=== PATIENT | male | born 1980 | race African-American/Black ===

== ENCOUNTER 2016-04-28 09:41 | Emergency (ER) | payer SELFPAY ==
[~2016-04-28] VITALS: Ht 182.9 cm; Wt 88.0 kg
[~2016-04-28 09:41] MED LIST: CRUTCHES AXILLARY; HYDR7.5S PO
[2016-04-28 09:43] VITALS: BP 116/71; PULSE 66; RESP 20; TEMP 97.8; O2SAT 97
[2016-04-28 09:49] VITALS: BP 115/60; PULSE 70; RESP 20; TEMP 98.7
--- NOTE | 2016-04-28 10:51 | PD ---
HPI Chief Complaint: Oral / Dental Pain or Problem Time Seen by Provider: 10:41 Travel History International Travel<30 days: No Contact w/Intl Traveler<30days: No Traveled to known affect area: No History of Present Illness HPI 36-year-old male came to the emergency room with history of left-sided jaw pain , swelling and nausea. Patient says that he had a pimple 2 weeks ago on that side of his jaw. It popped and pus came out. He has been putting Band-Aid and cleaning it. However now he has pain and has difficulty eating and chewing his food. Last night he drank alcohol and this morning he has been vomiting. Vital signs are stable in the emergency room. Patient had a jaw fracture one year ago on the left side. He was in this hospital at that time. [facility] Past Medical History Narrative Medical List of his past medical history is reviewed from the nursing note. Arthritis: No Asthma: No Autoimmune Disease: No Heart Rhythm Problems: No Cancer: No Cardiovascular Problems: No High Cholesterol: No Chemotherapy: No Chest Pain: No Congestive Heart Failure: No COPD: No Cerebrovascular Accident: No Diabetes: No Diminished Hearing: No Endocrine: No GERD: No Genitourinary: No Hiatal Hernia: No Immune Disorder: No Kidney Stones: No Musculoskeletal: No Neurologic: No Psychiatric: No Reproductive: No Respiratory: No Migraines: No Radiation Therapy: No Renal Failure: No Seizures: No Sickle Cell Disease: No Sleep Apnea: No Thyroid Disease: No Ulcer: No Past Surgical History Abdominal Surgery: No AICD: No Arteriovenous Shunt: No Cardiac Surgery: No Ear Surgery: No Endocrine Surgery: No Eye Surgery: No Genitourinary Surgery: No Gynecologic Surgery: No Insulin Pump: No Joint Replacement: No Oral Surgery: No Pacemaker: No Thoracic Surgery: No Other Surgery: Yes (plate fused on left jaw) Social History Alcohol Use: Yes (PINT OF LIQUOR ON THE WEEKENDS) Tobacco Use: Yes (1/2 PACK DAILY) Substance Use: Yes (MARIJUANA) Allergies-Medications (Allergen,Severity, Reaction): Coded Allergies: No Known Allergies (Verified , 03/04/15) Comments No known drug allergies. Reported Meds & Prescriptions Reported Meds & Active Scripts Active Ibuprofen 600 Mg Tab 600 Mg PO Q8HR PRN Protonix (Pantoprazole Sodium) 20 Mg Tab 20 Mg PO DAILY Keflex (Cephalexin) 500 Mg Cap 500 Mg PO Q8H Hydrocodone Bita1 M2 15 Ml Soln 15 Ml PO Q6H PRN Crutches Axillary 1 Ea Narrative Medication List of his home medications reviewed from the nursing note. Review of Systems Except as stated in HPI: all other systems reviewed are Neg Physical Exam Narrative GENERAL: Awake, alert, moderate distress, alcohol breath SKIN: Warm and dry. Left mandibular angle area skin has dried scabs and slight swelling which is tender to touch HEAD: Atraumatic. Normocephalic. EYES: Pupils equal and round. No scleral icterus. No injection or drainage. ENT: No nasal bleeding or discharge. Mucous membranes pink and moist. Left gingivobuccal groove looks slightly swollen and tender to touch. There is an area corresponding to #19 tooth where in the gum area there is a little tissue growth. It is tender to touch. Not friable. Seem like there might be pus coming out and swab was collected. Teeth look otherwise in moderate condition. NECK: Trachea midline. No JVD. CARDIOVASCULAR: Regular rate and rhythm. No murmur appreciated. RESPIRATORY: No accessory muscle use. Clear to auscultation. Breath sounds equal bilaterally. GASTROINTESTINAL: Abdomen soft, non-tender, nondistended. Hepatic and splenic margins not palpable. MUSCULOSKELETAL: No obvious deformities. No clubbing. No cyanosis. No edema. NEUROLOGICAL: Awake and alert. No obvious cranial nerve deficits. Motor grossly within normal limits. Normal speech. PSYCHIATRIC: Appropriate mood and affect; insight and judgment normal. Data Data Last Documented VS Vital Signs Date Time Temp Pulse Resp B/P Pulse Ox O2 Delivery O2 Flow Rate FiO2 04/28/16 09:51 67 04/28/16 09:49 98.7 20 115/60 04/28/16 09:43 97 Room Air Orders Cephalexin (Keflex) (04/28/16 11:00) Ondansetron Odt (Zofran Odt) (04/28/16 11:00) Acetamin-Hydrocod 325-5 Mg ([place] 5-325 (04/28/16 11:00) Wound Culture And Gram Stain (04/28/16 11:01) MDM Medical Decision Making Medical Screen Exam Complete: Yes Emergency Medical Condition: Yes Medical Record Reviewed: Yes Differential Diagnosis Gingivitis, folliculitis, alcoholic gastritis Narrative Course 11:06 AM given stable vital signs I'm comfortable not ordering any blood test for this patient. The wound culture will be sent. I have ordered by mouth Keflex, by mouth hydrocodone and Zofran for him. He'll be discharged home with prescriptions. I have encouraged him to take the antibiotics and see a dentist. Procedures EKG Prior to Arrival: No Diagnosis Primary Impression: Gingivitis Additional Impressions: Folliculitis Alcoholic gastritis Qualified Code: K29.20 - Acute alcoholic gastritis without hemorrhage Referrals: Primary Care Physician 3 days Additional Instructions: Please take the medications as per the prescription direction. Keep good dental hygiene. Use Listerine mouthwash as often as possible during the day especially after every meal. Follow up with a dentist. Return to the ER if the condition worsens or any other new concerns. Med/Other Pt SpecificInfo: Prescription(s) given Scripts Ibuprofen 600 Mg [id number] Mg PO Q8HR PRN (PAIN) #30 TAB Ref 0 Prov:Julia Mercado MD 04/28/16 Pantoprazole (Protonix)20 Mg Tab20 Mg PO DAILY #30 TAB Ref 0 Prov:Julia Mercado MD 04/28/16 Cephalexin (Keflex)500 Mg [id number] Mg PO Q8H #30 CAP Ref 0 Prov:Julia Mercado MD 04/28/16 Disposition: 01 DISCHARGE HOME Condition: Stable Julia Mercado MD Apr 28, 2016 10:51
[2016-04-28] MEDS ORDERED: ACETAMINOPHEN/HYDROcodone 325 MG/5 MG TAB PO ONE (11:00)
[2016-04-28] MEDS ORDERED: ONDANSETRON ODT 4 MG TAB PO ONE (11:00)
[2016-04-28] MEDS ORDERED: CEPHALEXIN MONOHYDRATE 500 MG CAP PO ONE (11:00)
[2016-04-28] MEDS ORDERED: CEPH-460 PO (11:09)
[2016-04-28] MEDS ORDERED: PANT20 PO (11:09)
[2016-04-28] MEDS ORDERED: IBUP-232 PO (11:09)
== END 2016-04-28 12:18 | disposition home or self-care (01) ==
LOC: NEPA 09:41
DX: K05.10 Chronic gingivitis, plaque induced (principal); L73.9 Follicular disorder, unspecified; K29.20 Alcoholic gastritis without bleeding; F17.210 Nicotine dependence, cigarettes, uncomplicated; F12.10 Cannabis abuse, uncomplicated; F10.10 Alcohol abuse, uncomplicated
CPT/HCPCS: 87070; 99283

== ENCOUNTER 2016-05-06 20:57 | Inpatient (IN) | payer SELFPAY ==
[~2016-05-06] VITALS: Ht 182.9 cm; Wt 87.0 kg
[~2016-05-06 20:57] MED LIST changes: +CEPH-460 PO; +IBUP-232 PO; +PANT20 PO
[2016-05-06 20:59] VITALS: BP 136/81; PULSE 89; RESP 18; TEMP 98.2; O2SAT 98
[2016-05-07] VITALS (7 sets, daily range): BP systolic 109–127; BP diastolic 56–66; PULSE 54–68; RESP 16–20; TEMP 96.8–98.2; O2SAT 94–100
[2016-05-07 04:12] LABS: BASOPHIL % 0.4 % (0.0-2.0); EOSINOPHIL # 0.2 TH/MM3 (0-0.4); HEMATOCRIT 41.5 % (39.0-51.0); HEMO FLAGS DIFF FINAL; LYMPH % 21.6 % (9.0-44.0); MEAN CELL VOLUME 81.8 FL (80.0-100.0); MEAN CORPUSCULAR HEMOGLOBIN 26.9 PG (27.0-34.0); MEAN CORPUSCULAR HGB CONC 32.9 % (32.0-36.0); MONO % 10.2 % (0.0-8.0); NEUT % 65.8 % (16.0-70.0); PLATELET COUNT 243 TH/MM3 (150-450); RED BLOOD COUNT 5.07 MIL/MM3 (4.50-5.90); WHITE BLOOD COUNT 9.1 TH/MM3 (4.0-11.0)
[2016-05-07 04:33] LABS: ALT (GPT) 20 U/L (12-78); ANION GAP 9 MEQ/L (5-15); AST (GOT) 12 U/L (15-37); BICARBONATE 26.2 MEQ/L (21.0-32.0); BLOOD UREA NITROGEN 19 MG/DL (7-18); CHLORIDE 104 MEQ/L (98-107); GLOMERULAR FILTRATION RATE 94 ML/MIN (>89); POTASSIUM 3.7 MEQ/L (3.5-5.1); SODIUM (NA) 139 MEQ/L (136-145)
[2016-05-07 04:36] LABS: ALKALINE PHOSPHATASE 74 U/L (45-117); TOTAL BILIRUBIN ADULT 0.6 MG/DL (0.2-1.0)
[2016-05-07] MEDS ORDERED: KETOROLAC TROMETHAMINE 30 MG/ML (IVP) VIAL IV PUSH ONE (05:15)
--- NOTE | 2016-05-07 05:15 | PD ---
HPI Chief Complaint: Oral / Dental Pain or Problem Time Seen by Provider: 04:18 Travel History International Travel<30 days: No Contact w/Intl Traveler<30days: No Traveled to known affect area: No History of Present Illness HPI 36yo M with PMH of mandibular surgery [address] Fulton presents to the ED with c/o left jaw swelling and pain for 1 month. Pt has had recurrent abscess since the surgery and had been drained by Dr. Fulton before. However, pt could not afford a follow up this time so came to the ED. Denies any fever, drooling, chest pain, sob, n/v, abdominal pain, weakness or numbness. PFSH Past Medical History Arthritis: No Asthma: No Autoimmune Disease: No Heart Rhythm Problems: No Cancer: No Cardiovascular Problems: No High Cholesterol: No Chemotherapy: No Chest Pain: No Congestive Heart Failure: No COPD: No Cerebrovascular Accident: No Diabetes: No Diminished Hearing: No Endocrine: No GERD: No Genitourinary: No Hiatal Hernia: No Immune Disorder: No Kidney Stones: No Musculoskeletal: No Neurologic: No Psychiatric: No Reproductive: No Respiratory: No Migraines: No Radiation Therapy: No Renal Failure: No Seizures: No Sickle Cell Disease: No Sleep Apnea: No Thyroid Disease: No Ulcer: No ?: Not Past Surgical History Abdominal Surgery: No AICD: No Arteriovenous Shunt: No Cardiac Surgery: No Ear Surgery: No Endocrine Surgery: No Eye Surgery: No Genitourinary Surgery: No Gynecologic Surgery: No Insulin Pump: No Joint Replacement: No Oral Surgery: No Pacemaker: No Thoracic Surgery: No Other Surgery: Yes (plate fused on left jaw) Social History Alcohol Use: Yes (PINT OF LIQUOR ON THE WEEKENDS) Tobacco Use: Yes (1/2 PACK DAILY) Substance Use: Yes (MARIJUANA) Allergies-Medications (Allergen,Severity, Reaction): Coded Allergies: No Known Allergies (Verified , 05/06/16) Reported Meds & Prescriptions Reported Meds & Active Scripts Active Ibuprofen 600 Mg Tab 600 Mg PO Q8HR PRN Protonix (Pantoprazole Sodium) 20 Mg Tab 20 Mg PO DAILY Keflex (Cephalexin) 500 Mg Cap 500 Mg PO Q8H Hydrocodone Bita1 M2 15 Ml Soln 15 Ml PO Q6H PRN Crutches Axillary 1 Ea Review of Systems Except as stated in HPI: all other systems reviewed are Neg Physical Exam Narrative GENERAL: 36yo M in mild distress. SKIN: Warm and dry. HEAD: Atraumatic. Normocephalic. EYES: Pupils equal and round. No scleral icterus. No injection or drainage. ENT: Left mandible: +5cm by 3cm abscess with +Fluctuance and mild drainage of purulent discharge. +Trismus. NECK: Trachea midline. No JVD. CARDIOVASCULAR: Regular rate and rhythm. No murmur appreciated. RESPIRATORY: No accessory muscle use. Clear to auscultation. Breath sounds equal bilaterally. GASTROINTESTINAL: Abdomen soft, non-tender, nondistended. No rebound tenderness or guarding. MUSCULOSKELETAL: No obvious deformities. No clubbing. No cyanosis. No edema. NEUROLOGICAL: Awake and alert. No obvious cranial nerve deficits. Motor grossly within normal limits. Normal speech. PSYCHIATRIC: Appropriate mood and affect; insight and judgment normal. Data Data Last Documented VS Vital Signs Date Time Temp Pulse Resp B/P Pulse Ox O2 Delivery O2 Flow Rate FiO2 05/06/16 20:59 98.2 89 18 136/81 98 Room Air Orders Complete Blood Count With Diff (05/07/16 03:25) Comprehensive Metabolic Panel (05/07/16 03:25) Lactic Acid Sepsis Protocol (05/07/16 03:25) Blood Culture (05/07/16 03:25) Blood Glucose (05/07/16 03:25) Ct Soft Tiss Neck W Iv Cont (05/07/16 ) Ketorolac Inj (Toradol Inj) (05/07/16 05:15) Iohexol 350 Inj (Omnipaque 350 Inj) (05/07/16 05:17) Admit Order (Ed Use Only) (05/07/16 06:49) Place In Observation (05/07/16 ) Vital Signs (Adult) Q4H (05/07/16 06:49) Activity Oob Ad Kimberly (05/07/16 06:49) ^ Slip Laster / Telemetry .CONTINUOUS (05/07/16 06:49) Diet Npo (05/07/16 Breakfast) Sodium Chlor 0.9% 1000 Ml Inj (Ns 1000 M (05/07/16 06:49) Sodium Chloride 0.9% Flush (Ns Flush) (05/07/16 07:00) Sodium Chloride 0.9% Flush (Ns Flush) (05/07/16 09:00) Case Management Consult (05/07/16 06:49) Naloxone Inj (Narcan Inj) (05/07/16 07:00) Consult Oral, Facial Surgery (05/07/16 ) Labs Laboratory Tests Test 05/07/16 05/07/16 03:40 03:44 Lactic Acid Level 1.1 mmol/L White Blood Count 9.1 TH/MM3 Red Blood Count 5.07 MIL/MM3 Hemoglobin 13.6 GM/DL Hematocrit 41.5 % Mean Corpuscular Volume 81.8 FL Mean Corpuscular Hemoglobin 26.9 PG Mean Corpuscular Hemoglobin 32.9 % Concent Red Cell Distribution Width 14.0 % Platelet Count 243 TH/MM3 Mean Platelet Volume 8.7 FL Neutrophils (%) (Auto) 65.8 % Lymphocytes (%) (Auto) 21.6 % Monocytes (%) (Auto) 10.2 % Eosinophils (%) (Auto) 2.0 % Basophils (%) (Auto) 0.4 % Neutrophils # (Auto) 6.0 TH/MM3 Lymphocytes # (Auto) 2.0 TH/MM3 Monocytes # (Auto) 0.9 TH/MM3 Eosinophils # (Auto) 0.2 TH/MM3 Basophils # (Auto) 0.0 TH/MM3 CBC Comment DIFF FINAL Differential Comment Sodium Level 139 MEQ/L Potassium Level 3.7 MEQ/L Chloride Level 104 MEQ/L Carbon Dioxide Level 26.2 MEQ/L Anion Gap 9 MEQ/L Blood Urea Nitrogen 19 MG/DL Creatinine 1.08 MG/DL Estimat Glomerular Filtration 94 ML/MIN Rate Random Glucose 70 MG/DL Calcium Level 9.1 MG/DL Total Bilirubin 0.6 MG/DL Aspartate Amino Transf 12 U/L (AST/SGOT) Alanine Aminotransferase 20 U/L (ALT/SGPT) Alkaline Phosphatase 74 U/L Total Protein 7.9 GM/DL Albumin 3.8 GM/DL [facility] Medical Decision Making Medical Screen Exam Complete: Yes Emergency Medical Condition: Yes Differential Diagnosis Superficial abscess vs. deep abscess Narrative Course 36yo M with recurrent left mandibular abscess. Pt has what appears to be superficial abscess that is draining but also had pain left left neck and it is over where his surgery is. CT soft tissue neck showed extensive soft tissue swelling of left neck including superficial abscess 1.9 by 2.1cm. There is lucency along the left lower plate and screws along the left mandible could be area of loosening. Discussed with Dr. Fulton who wants to bring him to surgery today and admit to hepas. Discussed with Dr. Sands and accepted to medicine. Pt is to be NPO. Diagnosis Primary Impression: Mandibular abscess Aisha Chanel DO May 07, 2016 05:15
[2016-05-07] MEDS ORDERED: IOHEXOL 350 MG/ML 10 ML VIAL (for RAD DIAG) IV ONE (05:17)
--- NOTE | 2016-05-07 05:54 | RADRPT ---
EXAM DATE/TIME: 05/07/2016 05:16 [place] COMPARISON: No previous studies available for comparison. INDICATIONS : Pus from left jaw for one month. IV CONTRAST: 68 cc Omnipaque 350 (iohexol) IV RADIATION DOSE: 15.79 CTDIvol (mGy) MEDICAL HISTORY : None SURGICAL HISTORY : plates in left jaw ENCOUNTER: Initial ACUITY: 1 month PAIN SCALE: 10/10 LOCATION: Left facial jaw TECHNIQUE: Volumetric scanning of the neck was performed. Using automated exposure control and adjustment of th e mA and/or kV according to patient size, radiation dose was kept as low as reasonably achievable to obtain optimal diagnostic quality images. FINDINGS: NASOPHARYNX: The nasopharyngeal airway has a normal configuration. No mucosal thickening or mass is seen. OROPHARYNX: The intrinsic muscles of the tongue are symmetric. The tonsillar pillars are intact. The prevertebr al soft tissues are not thickened. LARYNX: The supraglottic, glottic, and infraglottic structures are intact. PARAPHARYNGEAL: The parapharyngeal space is intact. SALIVARY GLANDS: The parotid and submandibular glands are intact. LYMPH NODES: No enlarged or necrotic-appearing nodes. THYROID: Homogeneous enhancement without evidence of nodule. BONES: Unremarkable. OTHER: Extensive soft tissue swelling along the left jaw with areas small superficial area of low attenuatio n measuring 1.9 x 2.1 cm likely related to small superficial abscess at the level of the hyoid bone. Plate and screws are seen along the left mandible. Along the lower aspect of the plate there is some lucency. CONCLUSION: 1. Extensive soft tissue swelling/cellulitis of the left neck including a small superficial abscess m easuring 1.9 x 2.1 cm. 2. There is lucency along the left lower plate and screws along the left mandible could be area of lo osening. Campos Larios MD on May 07, 2016 at 5:47 Board Certified Radiologist. This report was verified electronically.
[2016-05-07] MEDS ORDERED: NALOXONE HCL 0.4 MG/ML AMP IV PRN (07:00)
[2016-05-07] MEDS ORDERED: SODIUM CHLORIDE 0.9% FLUSH 5 ML FLUSH FLUSH PRN (07:00)
[2016-05-07] MEDS: SODIUM CHLOR 0.9% 1000 ML INJ 1,000 ML IV SCH ×2 (07:44→15:58)
[2016-05-07] MEDS ORDERED: MAGNESIUM HYDROXIDE SUSP 30 ML CUP PO PRN (08:30)
[2016-05-07] MEDS ORDERED: ONDANSETRON HCL 4 MG/2 ML VIAL IVP PRN (08:30)
[2016-05-07] MEDS ORDERED: ACETAMINOPHEN 325 MG TAB PO PRN ×2 (08:30)
[2016-05-07] MEDS ORDERED: SENNOSIDES 8.6 MG TAB PO PRN (08:30)
[2016-05-07] MEDS ORDERED: BISACODYL 10 MG SUPP PR PRN (08:30)
--- NOTE | 2016-05-07 08:37 | MB ---
cc: KARLENE FULTON DMD DATE OF CONSULTATION: 05/07/2016 REASON FOR CONSULTATION Abscess left mandible, failing hardware. HISTORY OF PRESENT ILLNESS This is a 36-year-old male who in February 2015 had ORIF of bilateral mandible fractures performed by us. I have seen and examined the patient this morning. The patient's is at the bedside. The patient and report that he has had swelling in the left jaw region x1 month. He did not follow-up in our office. He is alert and oriented x3, in no acute distress. Denies any fever, chills, nausea, vomiting, any shortness of breath, any difficulty swallowing or any difficulty speaking. PHYSICAL EXAMINATION VITAL SIGNS: Temperature 98.2, pulse 89, respiratory rate 18, blood pressure 136/81. Oxygen saturation 98%. ORAL MAXILLOFACIAL: The facial bones and neck has been examined. He has a discharge on the left side of the neck below the submandibular region, some pus that is noted there. Mild tenderness to palpation. Trachea is midline. No other gross neck edema is noted. Intraorally the bite is in occlusion. There is no false point of motion of the mandible. I am not appreciating any gross fluctuance inside the mouth, however, the patient has pain to open the mouth. No elevation of the floor of mouth or tongue is noted. No bleeding or any pus is noted. IMAGING DATA CT scan of the neck shows failed hardware, radiolucency around the posterior screws. Also a collection is noted in the left posterior region of the mandible/neck. LABORATORY DATA White count is 9.1, H&H 13.6 and 41.5, platelets 243. Sodium 139, potassium 3.7, chloride 104, CO2 26.2, BUN 19, creatinine 1.08, glucose 70. IMPRESSION AND PLAN This is a 36-year-old male who in February 2015 underwent ORIF of bilateral mandible fractures. He now has failing hardware in the left mandible angle region with some purulence. Will plan to take the patient to the operating room today for removal of the hardware. The bite appears stable in occlusion, there is no false point of the motion. We will take the plate out and do an incision and drainage of the abscess that is noted there. The benefits, risks, indications for the procedure, procedure in detail, and the options of no treatment including alternatives were discussed with the patient. The risks are not limited to any post-op pain, infection, bleeding, damage to the adjacent soft tissue, hard tissue, anesthesia complications, further surgeries as required. The patient is still smoking. All questions and concerns were addressed. Karlene Fulton DMD RRT/DEAN /8:05 AM /8:28 AM ADALI
[2016-05-07] MEDS: SODIUM CHLORIDE 0.9% FLUSH 5 ML FLUSH FLUSH SCH ×2 (09:00→21:00)
[2016-05-07] MEDS: DOCUSATE SODIUM 100 MG CAP PO SCH ×2 (09:17→21:00)
[2016-05-07] MEDS: ACETAMINOPHEN/HYDROcodone 325 MG/5 MG TAB PO PRN (09:18)
[2016-05-07] MEDS ORDERED: IBUP-232 PO (09:20)
[2016-05-07] MEDS ORDERED: DEXAMETHASONE SOD PHOS 20 MG/5 ML VIAL IV ONE (09:30)
[2016-05-07] MEDS: CLINDAMYCIN INJ 900 MG in SODIUM CHLORIDE 0.9% INJ 100 ML IV SCH ×3 (09:40→21:00)
[2016-05-07] MEDS ORDERED: NEOSTIGMINE 3 MG/3 ML SYR IV ONE (10:30)
[2016-05-07] MEDS ORDERED: PROPOFOL 200 MG/20 ML AMP IV ONE (10:30)
[2016-05-07] MEDS ORDERED: ONDANSETRON HCL 4 MG/2 ML VIAL IV PUSH ONE (10:30)
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
[2016-05-07] MEDS: MORPHINE SULFATE 4 MG/ML INJ IV PUSH PRN (15:59)
[2016-05-07] MEDS ORDERED: CHLORHEXIDINE GLUCONATE 0.12% 30 ML CUP ONE (20:00)
[2016-05-07] MEDS ORDERED: LIDOCAINE 1%/EPINEPHrine 1:100,000 SOLN 20 ML VIAL ONE (20:00)
[2016-05-07] MEDS ORDERED: LIDOCAINE 2%/EPINEPHrine 1:100,000 30ML MDV ONE (20:37)
[2016-05-07] MEDS ORDERED: ACETAMINOPHEN 1000 MG/100 ML VIAL IV ONE (20:45)
[2016-05-07] MEDS ORDERED: DICLOFENAC SODIUM 37.5 MG/ML VIAL IV PUSH ONE (20:45)
[2016-05-07] MEDS ORDERED: DO NOT ADM ANY ANTICOAGULANT DRUGS XX PRN (22:30)
[2016-05-07] MEDS ORDERED: fentaNYL CITRATE 250 MCG/5 ML AMP ONE (22:32)
[2016-05-07] MEDS ORDERED: methylPREDNISolone SOD SUCC 125 MG/2 ML VIAL ONE (22:49)
[2016-05-07] MEDS: methylPREDNISolone SOD SUCC 125 MG/2 ML VIAL IV SCH (22:56)
[2016-05-08] VITALS: BP 132/74; PULSE 65; RESP 16; TEMP 97.1; O2SAT 99
[2016-05-08] MEDS: MORPHINE SULFATE 4 MG/ML INJ IV PUSH PRN ×7 (00:50→22:37)
[2016-05-08] MEDS: SODIUM CHLOR 0.9% 1000 ML INJ 1,000 ML IV SCH ×2 (02:07→04:39)
[2016-05-08] MEDS: ACETAMINOPHEN/HYDROcodone 325 MG/5 MG TAB PO PRN ×3 (02:56→20:22)
[2016-05-08] MEDS: CLINDAMYCIN INJ 900 MG in SODIUM CHLORIDE 0.9% INJ 100 ML IV SCH ×4 (02:57→20:24)
[2016-05-08 04:00] VITALS: BP 109/61; PULSE 77; RESP 18; TEMP 97.6; O2SAT 97
[2016-05-08] MEDS: methylPREDNISolone SOD SUCC 125 MG/2 ML VIAL IV SCH ×2 (04:40→12:00)
[2016-05-08 05:10] LABS: AUTOMATED NEUTROPHIL # 10.1 TH/MM3 (1.8-7.7); BASOPHIL % 0.1 % (0.0-2.0); HEMATOCRIT 37.6 % (39.0-51.0); HEMO FLAGS DIFF FINAL; LYMPH % 9.1 % (9.0-44.0); MEAN CELL VOLUME 82.2 FL (80.0-100.0); MEAN CORPUSCULAR HEMOGLOBIN 26.6 PG (27.0-34.0); MEAN CORPUSCULAR HGB CONC 32.4 % (32.0-36.0); MONO % 1.9 % (0.0-8.0); NEUT % 88.9 % (16.0-70.0); PLATELET COUNT 254 TH/MM3 (150-450); RED BLOOD COUNT 4.58 MIL/MM3 (4.50-5.90); RED CELL DISTRIBUTION WIDTH 13.8 % (11.6-17.2); WHITE BLOOD COUNT 11.4 TH/MM3 (4.0-11.0)
[2016-05-08 08:00] VITALS: BP 108/62; PULSE 65; RESP 20; TEMP 96.5; O2SAT 99
[2016-05-08] MEDS: SODIUM CHLORIDE 0.9% FLUSH 5 ML FLUSH FLUSH SCH ×2 (08:26→20:23)
[2016-05-08] MEDS: DOCUSATE SODIUM 100 MG CAP PO SCH ×2 (08:26→20:23)
[2016-05-08] MEDS ORDERED: GLUCAGON 1 MG/ML VIAL OTHER PRN (09:00)
[2016-05-08] MEDS ORDERED: DEXTROSE 50% IN WATER 50 ML VIAL(D50) IV PUSH PRN (09:00)
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
[2016-05-08] MEDS: INSULIN ASPART SUPPLEMENTAL SCALE SQ SCH ×3 (11:59→21:00)
[2016-05-08 12:00] VITALS: BP 117/59; PULSE 71; RESP 20; TEMP 97.1; O2SAT 99
[2016-05-08] MEDS ORDERED: methylPREDNISolone ACETATE 80 MG/ML VIAL IM SCH (12:00)
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
[2016-05-08] MEDS ORDERED: HYDR-3516 PO (13:45)
[2016-05-08 16:00] VITALS: BP 110/54; PULSE 66; RESP 20; TEMP 97.8; O2SAT 95
[2016-05-08 16:52] LABS: HEMOGLOBIN A1a 1.2 %; HEMOGLOBIN Ao 84.1 %; HEMOGLOBIN F 0.7 %; HEMOGLOBIN LA1C 2.9 %
--- NOTE | 2016-05-08 17:04 | HHI.PR ---
Subjective Remarks POD 1 s/p removal of failed hardware left mandible and I & D left mandible/neck pt seen and examined, AAOx3, NAD at bedside, ambulating , tolerating po well, reports feeling much better, no complaints Objective Vital Signs Date Time Temp Pulse Resp B/P Pulse Ox O2 Delivery O2 Flow Rate FiO2 05/08/16 12:00 97.1 71 20 117/59 99 05/08/16 08:00 96.5 65 20 108/62 99 05/08/16 05:41 18 05/08/16 04:00 97.6 77 18 109/61 97 05/08/16 03:56 18 05/08/16 00:00 97.1 65 16 132/74 99 05/07/16 23:28 99 Nasal Cannula 1.00 05/07/16 23:14 73 16 99 Nasal Cannula 3 05/07/16 23:00 67 16 153/78 99 Nasal Cannula 3 05/07/16 22:45 70 16 151/89 100 Nasal Cannula 3 05/07/16 22:35 98.9 90 18 132/73 100 Nasal Cannula 3 05/07/16 20:00 98.0 61 18 109/61 94 05/07/16 17:00 96.8 60 20 127/66 100 I/O 05/07/16 05/07/16 05/07/16 05/08/16 05/08/16 05/08/16 07:00 15:00 23:00 07:00 15:00 23:00 Intake Total 2052 ml 1180 ml Output Total 30 ml Balance 2022 ml 1180 ml Intake Oral 600 ml IV Total 1152 ml 580 ml Other 900 ml Output Estimated Blood Loss 30 ml Result Diagram: 05/08/16 0404 05/08/16 0404 Other Results no fungi, many wbc final cultures pending Objective Remarks significant decrease in left neck/mandible/cheek edema [place] drain left neck ,no discharge noted, trach midline intraorally, tissues pink and well perfused wound margins well approximated, sutures intact, hemostatic Assessment and Plan Assessment and Plan pod1 s/p removal of failed hardware left mandible an I&D left neck/mandible plan for drain removal tomorrow plan to d/c tomorrow continue supportive care Luis Felipe Fulton DMD May 08, 2016 17:04
[2016-05-08 20:00] VITALS: BP 113/74; PULSE 72; RESP 18; TEMP 97.1; O2SAT 99
== END 2016-05-09 00:41 | disposition left against medical advice (07) | DRG 496 ==
LOC: NEPE 20:57 → NEDA 05-07 06:51 → NEDH 05-07 14:37 → HOCA 05-07 16:49
PROVIDERS: ADMIT Internal Medicine; ATTEND Internal Medicine
PROC: 0NPW04Z Removal of Internal Fixation Device from Facial Bone, Open Approach (ICD-10-PCS; principal; 2016-05-07 20:21)
PROC: 0H94X0Z Drainage of Neck Skin with Drainage Device, External Approach (ICD-10-PCS; 2016-05-07 20:21)
DX: T84.69XA Infection and inflammatory reaction due to internal fixation device of other site, initial encounter (principal); L02.01 Cutaneous abscess of face; R13.10 Dysphagia, unspecified; L02.11 Cutaneous abscess of neck; M27.2 Inflammatory conditions of jaws; F17.210 Nicotine dependence, cigarettes, uncomplicated; R73.9 Hyperglycemia, unspecified; Y83.1 Surgical operation with implant of artificial internal device as the cause of abnormal reaction of the patient, or of later complication, without mention of misadventure at the time of the procedure
CPT/HCPCS: 70491; 80048; 80053; 82948; 83036; 83605; 85025; 87015; 87040; 87070; 87102; 87116; 87205; 87206; 96374; J0131; J1040; J1100; J1130; J1885; J2270; J2405; J2710; J2930; J3010; J7030; Q9967